=== PATIENT | female | born 1990 | race Caucasian/White ===

== ENCOUNTER 2017-06-22 16:44 | Emergency (ER) | payer BC ==
[2017-06-22] MEDS ORDERED: Benzocaine 20% Topical Spray UD MUCMEM ONE (18:19)
[2017-06-22] MEDS ORDERED: Lidocaine 2% Viscous Solution 15 ML Cup PO ONE (18:19)
[2017-06-22] MEDS ORDERED: Clindamycin HCl 150 MG Cap PO ONE (18:20)
--- NOTE | 2017-06-22 18:27 | EDM.PDOC ---
ED HPI GENERAL MEDICAL PROBLEM - General Chief Complaint: General Stated Complaint: ORAL ISSUES Time Seen by Provider: 06/22/17 18:11 Source of Information: Reports: Patient History Limitations: Reports: No Limitations - History of Present Illness INITIAL COMMENTS - FREE TEXT/NARRATIVE: HISTORY AND PHYSICAL: History of present illness: Patient is a 26-year-old female who presents to the emergency room with complaints of right upper dental pain 1 week. She states her upper wisdom tooth is coming in and is "rotten". She does have a plan to have this removed but is currently switching her insurance. She denies any fever, chills, chest pain or shortness of breath. Does state that the pain does radiate into her right ear occasional. Denies any ear drainage or hearing loss. Denies any difficulty swallowing, drooling, pain with opening her mouth. Review of systems: As per history of present illness and below otherwise all systems reviewed and negative. Past medical history: As per history of present illness and as reviewed below otherwise noncontributory. Surgical history: As per history of present illness and as reviewed below otherwise noncontributory. Social history: No reported history of drug or alcohol abuse. Family history: As per history of present illness and as reviewed below otherwise noncontributory. Physical exam: General: Well-developed and well-nourished 26 showed female. Alert and oriented. Appears nontoxic and in no acute distress. HEENT: Atraumatic, normocephalic, pupils reactive, negative for conjunctival pallor or scleral icterus, mucous membranes moist, mild erythema and swelling noted to the right upper gumline, throat clear, tympanic membranes normal bilaterally, neck supple, lymphadenopathy, nontender, trachea midline. No drooling or trismus. No meningeal signs. Lungs: Clear to auscultation, breath sounds equal bilaterally, chest nontender. Heart: S1S2, regular, negative for clicks, rubs, or JVD. Abdomen: Soft, nondistended, nontender. Negative for masses or hepatosplenomegaly. Negative for costovertebral tenderness. Pelvis: Stable nontender. Genitourinary: Deferred. Rectal: Deferred. Extremities: Atraumatic, negative for cords or calf pain. Neurovascular unremarkable. Neuro: Awake, alert, oriented. Cranial nerves II through XII unremarkable. Cerebellum unremarkable. Motor and sensory unremarkable throughout. Exam nonfocal. Patient has a penicillin/amoxicillin allergy. Has taken clindamycin the past with no difficulty. States she has been using Tylenol and ibuprofen with minimal relief. We discussed tramadol and appropriate uses of it. Patient is agreeable to plan of care. Denies any further questions at this time. Diagnostics: [] Therapeutics: Clindamycin by mouth, dental balls Impression: Dental abscess Plan: 1. Please take the clindamycin as directed. 2. Tramadol has been prescribed. May take one tablet every 4-6 hours as needed. Do not take this medication while driving or needing to be functioning at work as it may cause drowsiness. Tylenol and ibuprofen may be taken as directed. Dental balls have been given to you, this is a topical numbing agent which may be applied every 3-4 hours. Do not swallow or eat directly after use. 3. As we discussed please follow-up with your dentist for wisdom tooth extraction. Return to the ED as needed and as discussed. Definitive disposition and diagnosis as appropriate pending reevaluation and review of above. Onset: Today Right Upper Face Pain Score (Numeric/FACES): 8 - Related Data Allergies Allergy/AdvReac Type Severity Reaction Status Date / Time amoxicillin Allergy Anaphylactic Verified 06/22/17 17:54 Shock Penicillins Allergy Rash Verified 06/22/17 17:54 Home Meds: Home Meds . [No Known Home Meds] 06/22/17 [History] Past Medical History - Past Health History Medical/Surgical History: Denies Medical/Surgical History - Infectious Disease History Infectious Disease History: Reports: Chicken Pox Social & Family History - Tobacco Use Smoking Status *Q: Current Some Day Smoker Years of Tobacco use: 2 Packs/Tins Daily: 0.2 - Caffeine Use Caffeine Use: Reports: Coffee - Recreational Drug Use Recreational Drug Use: No ED ROS GENERAL - Review of Systems Review Of Systems: ROS reveals no pertinent complaints other than HPI. ED EXAM, GENERAL - Physical Exam Exam: See Below (See dictation) Course - Vital Signs Last Recorded V/S: Last Vital Signs Temp 99.2 F 06/22/17 17:51 Pulse 82 06/22/17 17:51 Resp 12 06/22/17 17:51 BP 158/91 H 06/22/17 17:51 Pulse Ox 94 L 06/22/17 17:51 - Orders/Labs/Meds Meds: Medications Discontinued Medications Generic Name Dose Route Start Last Admin Trade Name Marjorie PRN Reason Stop Dose Admin Benzocaine 2 each 06/22/17 18:19 Hurricaine One 20% MUCMEM 06/22/17 18:20 ONETIME ONE Clindamycin HCl 300 mg 06/22/17 18:20 Cleocin PO 06/22/17 18:21 ONETIME ONE Lidocaine HCl 15 ml 06/22/17 18:19 Xylocaine 2% Viscous PO 06/22/17 18:20 ONETIME ONE Departure - Departure Time of Disposition: 18:27 Disposition: Home, Self-Care 01 Clinical Impression: Dental abscess - Discharge Information Referrals: PCP,None [Primary Care Provider] - Additional Instructions: My general discharge The following information is given to patients seen in the emergency department who are being discharged to home. This information is to outline your options for follow-up care. We provide all patients seen in our emergency department with a follow-up referral. The need for follow-up, as well as the timing and circumstances, are variable depending upon the specifics of your emergency department visit. If you don't have a primary care physician on staff, we will provide you with a referral. We always advise you to contact your personal physician following an emergency department visit to inform them of the circumstance of the visit and for follow-up with them and/or the need for any referrals to a consulting specialist. The emergency department will also refer you to a specialist when appropriate. This referral assures that you have the opportunity for follow-up care with a specialist. All of these measure are taken in an effort to provide you with optimal care, which includes your follow-up. Under all circumstances we always encourage you to contact your private physician who remains a resource for coordinating your care. When calling for follow-up care, please make the office aware that this follow-up is from your recent emergency room visit. If for any reason you are refused follow-up, please contact the [facility] at and asked to speak to the emergency department charge nurse. [facility] [address] [place] [id number] 1. Please take the clindamycin as directed. 2. Tramadol has been prescribed. May take one tablet every 4-6 hours as needed. Do not take this medication while driving or needing to be functioning at work as it may cause drowsiness. Tylenol and ibuprofen may be taken as directed. Dental balls have been given to you, this is a topical numbing agent which may be applied every 3-4 hours. Do not swallow or eat directly after use. 3. As we discussed please follow-up with your dentist for wisdom tooth extraction. Return to the ED as needed and as discussed.
== END 2017-06-22 18:45 | disposition home or self-care (01) ==
LOC: MW.ED 16:44
DX: K04.7 Periapical abscess without sinus (principal); F17.210 Nicotine dependence, cigarettes, uncomplicated; Z88.1 Allergy status to other antibiotic agents; Z88.0 Allergy status to penicillin
CPT/HCPCS: 99283; A9270; 99284